=== PATIENT | female | born 1965 ===

== ENCOUNTER 2022-08-10 06:18 | Day surgery (SDC) | payer OTHER | END 2022-08-10 11:15 | disposition home or self-care (01) | LOC: AMB-ENDOS 06:18 | PROVIDERS: ATTEND Surgery | DX: K63.5 Polyp of colon (principal); Z88.0 Allergy status to penicillin; Z88.6 Allergy status to analgesic agent; Z20.822 Contact with and (suspected) exposure to COVID-19 ==